=== PATIENT | male | born 1995 | race Caucasian/White ===

== ENCOUNTER 2017-02-23 11:21 | Emergency (ER) | payer SELFPAY ==
[~2017-02-23] VITALS: Ht 182.9 cm; Wt 75.0 kg
[2017-02-23 11:23] VITALS: BP 139/77; TEMP 98.2
[2017-02-23] MEDS ORDERED: ZYRTEC 10MG10 MG PO (11:26)
[2017-02-23 15:24] VITALS: PULSE 78
== END 2017-02-23 15:06 | disposition home or self-care (01) ==
LOC: COL.ER 11:21
DX: S61.311A Laceration without foreign body of left index finger with damage to nail, initial encounter (principal); Z23 Encounter for immunization; W20.8XXA Other cause of strike by thrown, projected or falling object, initial encounter; Y92.69 Other specified industrial and construction area as the place of occurrence of the external cause; Y99.0 Civilian activity done for income or pay

== ENCOUNTER 2019-05-04 21:14 | Emergency (ER) | payer BC ==
[~2019-05-04] VITALS: Ht 180.3 cm; Wt 71.4 kg
[~2019-05-04 21:14] MED LIST: ZYRTEC 10MG10 MG PO
[2019-05-04 21:29] VITALS: TEMP 98.6
[2019-05-04 23:53] LABS: BASO # 0.1 (0.0-0.2); BASO % 0.7 % (0.0-2.0); EOS # 0.1 (0.0-0.7); EOS % 1.6 % (0-4.0); GRAN % 57.3 % (42.2-75.2); HEMATOCRIT 42.5 % (42.0-52.0); HEMOGLOBIN 15.2 g/dl (13.5-18.0); LYMPH # 2.6 (1.2-3.4); LYMPH % 30.1 % (20.0-51.0); MEAN CELL VOLUME 90 fl (80.0-100.0); MEAN CORPUSCULAR HEMOGLOBIN 32 pg (27.0-31.0); MEAN CORPUSCULAR HGB CONC 36 g/dl (33.0-37.0); MEAN PLATELET VOLUME 10.5 fl (7.4-10.4); MONO # 0.9 (0.1-0.6); PLATELET COUNT 243 K/mm3 (130-400); REDCELL DISTRIBUTION WIDTH-CV 11.9 % (11.5-14.5)
[2019-05-05 00:03] LABS: ALANINE AMINOTRANSFERASE 17 U/L (21-72); ALBUMIN 4.6 gm/dL (3.5-5.0); ALKALINE PHOSPHATASE 45 U/L (50-136); ANION GAP 11 mmol/L (7-16); AST,SGOT 21 U/L (15-37); BILIRUBIN,TOTAL 0.6 mg/dL (0.0-1.0); BLOOD UREA NITROGEN 16 mg/dL (9-20); CALCIUM 9.3 mg/dL (8.4-10.2); CARBON DIOXIDE 25 mmol/L (22-30); CHLORIDE 104 mmol/L (98-107); CREATININE, serum 0.97 (0.66-1.25); GLUCOSE 89 mg/dL (74-106); LIPASE 60 U/L (23-300); POTASSIUM 3.6 mmol/L (3.4-5.0); SODIUM 140 mmol/L (137-145); TOTAL PROTEIN 7.4 gm/dL (6.4-8.2)
[2019-05-05 00:04] LABS: C-REACTIVE PROTEIN < 0.5 mg/dL (0.0-0.9)
[2019-05-05 00:13] LABS: TROPONIN-I < 0.012 ng/mL (0.000-0.035)
[2019-05-05 00:20] LABS: COLLECTION METHOD CLEAN CATCH
[2019-05-05 00:27] LABS: MUCOUS Present /lpf; PH 6 (5-8); SQUAMOUS EPITHELIAL None Seen /hpf; URINE APPEARANCE Clear; URINE BACTERIA Rare /hpf; URINE BILIRUBIN Negative (NEGATIVE); URINE BLOOD Negative (NEGATIVE); URINE COLOR Yellow; URINE GLUCOSE Negative (NEGATIVE); URINE KETONE Trace (NEGATIVE); URINE LEUKOCYTE ESTERASE Negative (NEGATIVE); URINE NITRATE Negative (NEGATIVE); URINE PROTEIN(semi-quant) Negative (NEGATIVE); URINE RBC 0-2 /hpf; URINE UROBILINOGEN Negative (NEGATIVE)
[2019-05-05] MEDS ORDERED: ZOFRAN ODT4 MG PO (01:06)
[2019-05-05 01:36] VITALS: BP 123/78; PULSE 56
== END 2019-05-05 01:36 | disposition home or self-care (01) ==
LOC: COL.ER 21:14
PROVIDERS: Physician Assistant
DX: M94.0 Chondrocostal junction syndrome [Tietze] (principal); R10.84 Generalized abdominal pain
CPT/HCPCS: J1885; J2405; J7030